=== PATIENT | female | born 2005 | race Two or more races ===

== ENCOUNTER 2025-03-24 19:56 | Emergency (ER) | payer OTHER ==
[~2025-03-24] VITALS: Ht 160 cm; Wt 56.2 kg
[2025-03-24] MEDS ORDERED: ACETAMINOPHEN 500 MG GEL..CAP PO STA (21:58)
[2025-03-24 23:19] LABS: BASO % 0.3 % (0.1-1.2); EOS # 0.49 (0.04-0.54); EOS % 5.4 % (0.7-7.0); LYMPH # 1.52 (1.18-3.74); LYMPH % 16.8 % (19.3-53.1); MEAN PLATELET VOLUME 12.00 fl (9.4-12.4); MONO # 0.71 (0.24-0.82); MONO % 7.8 % (4.7-12.5); NEUT # 6.28 (1.56-6.13); NEUT % 69.5 % (34.0-71.1); RED CELL DISTRIBUTION WIDTH 12.5 % (11.6-14.4)
[2025-03-24 23:36] LABS: URINE APPEARANCE Cloudy; URINE BILIRRUBIN Negative (NEGATIVE); URINE BLOOD Negative; URINE COLOR Yellow; URINE GLUCOSE Negative (NEGATIVE); URINE KETONE Trace (NEGATIVE); URINE LEUKOCYTE Negative; URINE NITRATE Negative; URINE PROTEIN Negative (NEGATIVE); URINE UROBILINOGEN 1.0 E.U./dl
[2025-03-24 23:40] LABS: URINE BACTERIA 151.1 uL (0.0-1933); URINE EPITHELIAL CELLS 4.4 uL (0.0-38.8); URINE WBC 5.0 uL (0.0-23.2)
[2025-03-24 23:57] LABS: URINE CAST 0.00 uL (0.0-1.40); URINE RBC 1.3 uL (0.0-20.8)
[2025-03-25 01:11] LABS: ALT/SGPT 28.0 U/L (12-78); AST/SGOT 17.0 U/L (15-37); BILIRUBIN TOTAL 0.48 mg/dL (0.3-1.2); BUN CREA RATIO 20.0 (7.0-25.0); CREATININE SERUM 0.81 mg/dL (0.55-1.02); GFR 88.42; GLOBULINA 4.0 G/DL (2.4-3.5); GLUCOSE FASTING 98.0 mg/dL (65-100); OSMOLALITY SERUM 284.0 MOSM/KG (275-295)
[2025-03-25 01:19] LABS: HCG QUANTITATIVE 111523.0 mUI/mL (1-3)
== END 2025-03-25 03:05 ==
LOC: ER 19:56
PROVIDERS: General Practice
DX: O26.891 Other specified pregnancy related conditions, first trimester (principal); Z3A.08 8 weeks gestation of pregnancy; R10.2 Pelvic and perineal pain

== ENCOUNTER 2025-05-31 17:56 | Emergency (ER) | payer OTHER ==
[~2025-05-31] VITALS: Ht 157.5 cm; Wt 58.5 kg
[2025-05-31] MEDS ORDERED: 0.9 % SODIUM CHLORIDE 1,000 ML IV STA (20:26)
[2025-05-31 21:00] LABS: URINE APPEARANCE Cloudy; URINE BILIRRUBIN Negative (NEGATIVE); URINE BLOOD Negative; URINE COLOR Yellow; URINE GLUCOSE Negative (NEGATIVE); URINE KETONE Negative (NEGATIVE); URINE LEUKOCYTE Negative; URINE NITRATE Negative; URINE PROTEIN Negative (NEGATIVE); URINE UROBILINOGEN 1.0 E.U./dl
[2025-05-31 21:03] LABS: BASO % 0.2 % (0.1-1.2); EOS # 0.41 (0.04-0.54); EOS % 4.6 % (0.7-7.0); LYMPH # 1.59 (1.18-3.74); LYMPH % 18.0 % (19.3-53.1); MEAN PLATELET VOLUME 11.40 fl (9.4-12.4); MONO # 0.49 (0.24-0.82); MONO % 5.6 % (4.7-12.5); NEUT # 6.25 (1.56-6.13); NEUT % 70.9 % (34.0-71.1); RED CELL DISTRIBUTION WIDTH 11.9 % (11.6-14.4)
[2025-05-31 21:04] LABS: URINE BACTERIA 298.8 uL (0.0-1933); URINE EPITHELIAL CELLS 12.6 uL (0.0-38.8); URINE WBC 22.7 uL (0.0-23.2)
[2025-05-31 21:08] LABS: URINE CAST 0.14 uL (0.0-1.40); URINE RBC 0.8 uL (0.0-20.8)
== END 2025-05-31 22:41 | disposition home or self-care (01) ==
LOC: ER 17:56
DX: R10.2 Pelvic and perineal pain (principal)